=== PATIENT | male | born 1995 | race Two or more races ===

== ENCOUNTER 2023-07-31 13:39 | Emergency (ER) | payer MEDICAID, OTHER ==
[~2023-07-31] VITALS: Ht 182.9 cm; Wt 141.4 kg
[2023-07-31 14:24] VITALS: BP 136/72; PULSE 87; RESP 18; TEMP 98.2; O2SAT 98
[2023-07-31] MEDS ORDERED: AMOX875T4 PO (16:57)
[2023-07-31] MEDS ORDERED: IBUP-1456 PO (16:57)
[2023-07-31] MEDS ORDERED: KETOROLAC TROMETH 60MG/2ML VIAL IM ONE (17:00)
[2023-07-31] MEDS ORDERED: cefTRIAXone SOD 1,000 MG VL IM ONE (17:00)
== END 2023-07-31 17:27 | disposition home or self-care (01) ==
LOC: ER 13:39
DX: L05.91 Pilonidal cyst without abscess (principal); Z79.899 Other long term (current) drug therapy
CPT/HCPCS: 96372; 99284; J0696; J1885